=== PATIENT | male | born 1940 | race Caucasian/White ===

== ENCOUNTER 2019-09-04 13:01 | Inpatient (IN) ==
[2019-09-04] MEDS ORDERED: ACETAMINOPHEN 325 MG TABLET PO PRN (15:54)
[2019-09-04] MEDS ORDERED: ONDANSETRON 4 MG/2 ML VIAL IV PRN (15:54)
[2019-09-04 17:09] LABS: Basophils % 0.2 % (0.0-0.8); Eosinophils # 0.1 10*3/uL (0.0-0.87); Hemoglobin 11.9 GM/DL (14.0-18.0); Immature Granulocytes % 0.4 %; Immature Granulocytes Absolute 0.05 #; Lymphocytes # 0.6 10*3/uL (1.4-4.0); Lymphocytes % 5.7 % (21.2-54.2); Mean Corpuscular HGB Conc 36.1 GM/DL (32-36); Mean Platelet Volume 9.3 FL (9.6-12.0); Monocytes % 2.1 % (1.7-12.7); Neutrophils % 90.6 % (38.7-73.9); Platelet Count 193 T/CUMM (130-400); Red Blood Count 3.75 MC/CUMM (3.8-5.5); Red Cell Distribution Width 13.6 % (9.3-17.3); White Blood Count 11.1 T/CUMM (4-12)
[2019-09-04 17:22] LABS: Albumin 2.9 G/DL (3.4-5.0); Bilirubin,Total 1.1 MG/DL (0.2-1.0); Calcium 8.1 MG/DL (8.5-10.1); Osmolality,Calculated 294.1 MOS/KG (273-304); Total Protein 7.3 G/DL (6.4-8.3)
[2019-09-04 18:31] LABS: Band Neutrophils 1 % (0-10); Eosinophils 1 % (0-10); Lymphocytes 5 % (20-55); Platelet Estimate Normal; Segmented Neutrophils 91 % (50-85); Total Cells Counted 100
[2019-09-04] MEDS: SODIUM BICARB INJ 50 MEQ in SODIUM CHLORIDE 0.45% 1,000 ML IV SCH (18:33)
[2019-09-04] MEDS: HEPARIN 5,000 UNIT/1 ML VIAL SUBCUT SCH (18:45)
[2019-09-05] MEDS: HEPARIN 5,000 UNIT/1 ML VIAL SUBCUT SCH ×2 (02:48→10:59)
[2019-09-05] MEDS: SODIUM BICARB INJ 50 MEQ in SODIUM CHLORIDE 0.45% 1,000 ML IV SCH ×2 (02:58→09:43)
[2019-09-05 05:48] LABS: Basophils % 0.1 % (0.0-0.8); Eosinophils # 0.1 10*3/uL (0.0-0.87); Eosinophils % 0.5 % (0.00-10.9); Hematocrit 30.6 VOL% (42.0-52.0); Hemoglobin 10.8 GM/DL (14.0-18.0); Immature Granulocytes % 0.7 %; Immature Granulocytes Absolute 0.07 #; Lymphocytes # 0.7 10*3/uL (1.4-4.0); Lymphocytes % 6.9 % (21.2-54.2); Mean Corpuscular HGB Conc 35.3 GM/DL (32-36); Mean Corpuscular Volume 88.7 FL (87-102); Mean Platelet Volume 9.4 FL (9.6-12.0); Monocytes % 2.1 % (1.7-12.7); Neutrophils % 89.7 % (38.7-73.9); Platelet Count 190 T/CUMM (130-400); Red Blood Count 3.45 MC/CUMM (3.8-5.5); Red Cell Distribution Width 13.7 % (9.3-17.3); White Blood Count 10.7 T/CUMM (4-12)
[2019-09-05 06:06] LABS: Calcium 8.1 MG/DL (8.5-10.1); Osmolality,Calculated 301.5 MOS/KG (273-304)
[2019-09-05] MEDS: PANTOPRAZOLE 40 MG TABLET PO SCH (08:51)
[2019-09-05] MEDS: NYSTATIN 500,000 UNIT/5 ML UDCUP SWISH/SWAL SCH ×4 (09:41→20:14)
[2019-09-05 18:59] LABS: Apearance,Urine CLEAR (Clear); Bilirubin,Urine Negative (Negative); Blood, Urine Large mg/dL (Negative); Glucose,Urine (UA) Negative (Negative); Ketones,Urine Negative (Negative); Mucus,Urine Occasional /LPF (Occasional); Nitrite,Urine Negative (Negative); Protein,Urine Negative; RBC,Urine 282 /HPF (0-4); Urine Color Yellow (Yellow); Urine Specific Gravity 1.011 (1.001-1.035); Urine Urobilinogen < 2.0 EU/DL (0.2-1.0); WBC,Urine <1 /HPF (0-6)
[2019-09-06] MEDS: SODIUM BICARB INJ 50 MEQ in SODIUM CHLORIDE 0.45% 1,000 ML IV SCH ×3 (01:17→10:42)
[2019-09-06] MEDS ORDERED: LORazepam 2 MG/1 ML VIAL IV STA (02:50)
[2019-09-06 06:12] LABS: Calcium 8.6 MG/DL (8.5-10.1); Osmolality,Calculated 293.1 MOS/KG (273-304)
[2019-09-06] MEDS: FLUTICASONE 50 MCG NASAL SPRAY 16 GM BOTTLE BOTH NARES SCH (09:21)
[2019-09-06] MEDS: NYSTATIN 500,000 UNIT/5 ML UDCUP SWISH/SWAL SCH (10:08)
[2019-09-06] MEDS: PANTOPRAZOLE 40 MG TABLET PO SCH ×2 (10:08→11:41)
[2019-09-06] MEDS: FOLIC ACID 1 MG TABLET PO SCH ×2 (10:08→11:41)
[2019-09-06] MEDS: TIMOLOL 0.5% OPH SOLN 5 ML BOTTLE RIGHT EYE SCH (10:10)
[2019-09-06] MEDS ORDERED: FLUCONAZOLE INJ 200 MG in PREMIX 1 EACH IV ONE (10:39)
[2019-09-06] MEDS ORDERED: POTASSIUM CHLORIDE 20 MEQ TABLET PO SCH (11:00)
[2019-09-06] MEDS: OLANZapine 2.5 MG TABLET PO SCH (11:40)
[2019-09-06] MEDS: AMANTADINE 100 MG CAPSULE PO SCH ×2 (11:41→21:16)
[2019-09-06] MEDS: MEMANTINE 10 MG TABLET PO SCH ×2 (11:41→21:16)
[2019-09-06] MEDS: POTASSIUM CHLORIDE INJ 30 MEQ in SODIUM CHLORIDE 0.45% 1,000 ML IV SCH ×2 (13:21→23:38)
[2019-09-06] MEDS ORDERED: LORazepam 2 MG/1 ML VIAL IV ONE ×2 (17:00→23:16)
[2019-09-06] MEDS: MYLANTA/LIDO VISC/NYST 180 ML BOTTLE SWISH/SPIT PRN (17:17)
[2019-09-06] MEDS: OLANZapine 5 MG TABLET PO SCH (21:16)
[2019-09-06] MEDS ORDERED: LORazepam 2 MG/1 ML VIAL ONE (23:31)
[2019-09-07 06:00] LABS: Albumin 2.4 G/DL (3.4-5.0); Calcium 9.1 MG/DL (8.5-10.1)
[2019-09-07] MEDS: MYLANTA/LIDO VISC/NYST 180 ML BOTTLE SWISH/SPIT PRN ×2 (08:14→12:35)
[2019-09-07] MEDS: TIMOLOL 0.5% OPH SOLN 5 ML BOTTLE RIGHT EYE SCH (09:57)
[2019-09-07] MEDS: FLUTICASONE 50 MCG NASAL SPRAY 16 GM BOTTLE BOTH NARES SCH (09:57)
[2019-09-07] MEDS: PANTOPRAZOLE 40 MG TABLET PO SCH (09:58)
[2019-09-07] MEDS: POTASSIUM CHLORIDE INJ 30 MEQ in SODIUM CHLORIDE 0.45% 1,000 ML IV SCH (09:58)
[2019-09-07] MEDS: FOLIC ACID 1 MG TABLET PO SCH (09:58)
[2019-09-07] MEDS: MEMANTINE 10 MG TABLET PO SCH ×2 (09:58→22:13)
[2019-09-07] MEDS: AMANTADINE 100 MG CAPSULE PO SCH ×2 (09:58→22:13)
[2019-09-07] MEDS: OLANZapine 2.5 MG TABLET PO SCH (09:58)
[2019-09-07] MEDS: FLUCONAZOLE INJ 100 MG in IV BAG 1 EACH IV SCH (10:04)
[2019-09-07] MEDS ORDERED: ACYCLOVIR 40 MG/ML 30 ML/BOTTLE PO SCH (15:00)
[2019-09-07] MEDS: ACYCLOVIR INJ 250 MG in SODIUM CHLORIDE 0.9% 100 ML IV SCH ×2 (16:03→22:25)
[2019-09-07] MEDS: OLANZapine 5 MG TABLET PO SCH (22:13)
[2019-09-07] MEDS: DESITIN 4OZ/NYSTATIN 15 GRAM MIXTURE PASTE TOP SCH (22:19)
[2019-09-08] MEDS: ACYCLOVIR INJ 250 MG in SODIUM CHLORIDE 0.9% 100 ML IV SCH ×4 (06:16→22:21)
[2019-09-08] MEDS: POTASSIUM CHLORIDE INJ 30 MEQ in SODIUM CHLORIDE 0.45% 1,000 ML IV SCH ×3 (06:16→14:25)
[2019-09-08 06:33] LABS: Calcium 8.6 MG/DL (8.5-10.1); Osmolality,Calculated 286.3 MOS/KG (273-304)
[2019-09-08 06:35] LABS: Albumin 2.4 G/DL (3.4-5.0); Calcium 8.5 MG/DL (8.5-10.1); Osmolality,Calculated 292.7 MOS/KG (273-304)
[2019-09-08 08:27] LABS: Basophils % 0.4 % (0.0-0.8); Eosinophils # 0.1 10*3/uL (0.0-0.87); Eosinophils % 2.4 % (0.00-10.9); Hematocrit 28.5 VOL% (42.0-52.0); Hemoglobin 9.8 GM/DL (14.0-18.0); Lymphocytes # 0.6 10*3/uL (1.4-4.0); Mean Corpuscular HGB Conc 34.4 GM/DL (32-36); Mean Corpuscular Volume 90.8 FL (87-102); Monocytes % 3.2 % (1.7-12.7); Red Blood Count 3.14 MC/CUMM (3.8-5.5); Red Cell Distribution Width 13.4 % (9.3-17.3)
[2019-09-08 08:28] LABS: Platelet Count 104 T/CUMM (130-400); White Blood Count 2.5 T/CUMM (4-12)
[2019-09-08 09:03] LABS: Band Neutrophils 1 % (0-10); Eosinophils 3 % (0-10); Hypochromasia 1+; Lymphocytes 28 % (20-55); Ovalocytes Slight; Platelet Estimate Decreased; Segmented Neutrophils 67 % (50-85); Total Cells Counted 100
[2019-09-08] MEDS: MYLANTA/LIDO VISC/NYST 180 ML BOTTLE SWISH/SPIT PRN ×2 (09:03→22:20)
[2019-09-08] MEDS: PANTOPRAZOLE 40 MG TABLET PO SCH (09:03)
[2019-09-08] MEDS: FOLIC ACID 1 MG TABLET PO SCH (09:03)
[2019-09-08] MEDS: MEMANTINE 10 MG TABLET PO SCH ×2 (09:03→23:26)
[2019-09-08] MEDS: AMANTADINE 100 MG CAPSULE PO SCH ×2 (09:04→23:26)
[2019-09-08] MEDS: OLANZapine 2.5 MG TABLET PO SCH (09:04)
[2019-09-08] MEDS: FLUTICASONE 50 MCG NASAL SPRAY 16 GM BOTTLE BOTH NARES SCH (09:47)
[2019-09-08] MEDS: TIMOLOL 0.5% OPH SOLN 5 ML BOTTLE RIGHT EYE SCH (09:47)
[2019-09-08] MEDS: DESITIN 4OZ/NYSTATIN 15 GRAM MIXTURE PASTE TOP SCH ×2 (09:47→22:19)
[2019-09-08] MEDS: FLUCONAZOLE INJ 100 MG in IV BAG 1 EACH IV SCH (10:48)
[2019-09-08] MEDS: MYLANTA/LIDO VISC/NYST 180 ML BOTTLE SWISH/SPIT SCH (22:24)
[2019-09-08] MEDS: OLANZapine 5 MG TABLET PO SCH (23:09)
[2019-09-09] MEDS: POTASSIUM CHLORIDE INJ 30 MEQ in SODIUM CHLORIDE 0.45% 1,000 ML IV SCH ×3 (01:29→14:04)
[2019-09-09] MEDS: ACYCLOVIR INJ 250 MG in SODIUM CHLORIDE 0.9% 100 ML IV SCH ×3 (05:46→21:58)
[2019-09-09 06:00] LABS: Eosinophils % 1.2 % (0.00-10.9); Hematocrit 25.9 VOL% (42.0-52.0); Hemoglobin 9.1 GM/DL (14.0-18.0); Immature Granulocytes % 3.1 %; Immature Granulocytes Absolute 0.08 #; Lymphocytes # 0.5 10*3/uL (1.4-4.0); Lymphocytes % 18.8 % (21.2-54.2); Mean Corpuscular HGB Conc 35.1 GM/DL (32-36); Mean Corpuscular Volume 90.2 FL (87-102); Mean Platelet Volume 9.2 FL (9.6-12.0); Neutrophils % 74.9 % (38.7-73.9); Red Blood Count 2.87 MC/CUMM (3.8-5.5); Red Cell Distribution Width 13.1 % (9.3-17.3); White Blood Count 2.6 T/CUMM (4-12)
[2019-09-09 06:06] LABS: Albumin 2.3 G/DL (3.4-5.0); Calcium 8.1 MG/DL (8.5-10.1); Osmolality,Calculated 291.6 MOS/KG (273-304)
[2019-09-09 06:07] LABS: Calcium 8.2 MG/DL (8.5-10.1); Osmolality,Calculated 285.1 MOS/KG (273-304)
[2019-09-09 06:09] LABS: Platelet Count 81 T/CUMM (130-400)
[2019-09-09 06:45] LABS: Band Neutrophils 2 % (0-10); Eosinophils 1 % (0-10); Lymphocytes 16 % (20-55); Segmented Neutrophils 77 % (50-85); Total Cells Counted 100
[2019-09-09 06:46] LABS: Platelet Estimate Decreased
[2019-09-09] MEDS: MEMANTINE 10 MG TABLET PO SCH (08:02)
[2019-09-09] MEDS: PANTOPRAZOLE 40 MG TABLET PO SCH (08:02)
[2019-09-09] MEDS: FOLIC ACID 1 MG TABLET PO SCH (08:02)
[2019-09-09] MEDS: AMANTADINE 100 MG CAPSULE PO SCH (08:03)
[2019-09-09] MEDS: OLANZapine 2.5 MG TABLET PO SCH (08:03)
[2019-09-09] MEDS ORDERED: POTASSIUM CHLORIDE RIDER 10 MEQ in PREMIX 1 EACH IV PRN (08:53)
[2019-09-09] MEDS: TIMOLOL 0.5% OPH SOLN 5 ML BOTTLE RIGHT EYE SCH (10:27)
[2019-09-09] MEDS: DESITIN 4OZ/NYSTATIN 15 GRAM MIXTURE PASTE TOP SCH ×2 (10:27→22:00)
[2019-09-09] MEDS: MYLANTA/LIDO VISC/NYST 180 ML BOTTLE SWISH/SPIT SCH ×3 (10:27→22:00)
[2019-09-09] MEDS: FLUTICASONE 50 MCG NASAL SPRAY 16 GM BOTTLE BOTH NARES SCH (10:27)
[2019-09-09] MEDS: ACETAMINOPHEN 650 MG SUPP RECTAL PRN (10:28)
[2019-09-09 10:51] LABS: Apearance,Urine CLEAR (Clear); Bacteria,Urine Few /HPF (Few); Bilirubin,Urine Negative (Negative); Blood, Urine Moderate mg/dL (Negative); Glucose,Urine (UA) Negative (Negative); Ketones,Urine 20 mg/dL (Negative); Mucus,Urine Occasional /LPF (Occasional); Nitrite,Urine Negative (Negative); Protein,Urine Negative; RBC,Urine 6 /HPF (0-4); Urine Color Yellow (Yellow); Urine Specific Gravity 1.011 (1.001-1.035); Urine Urobilinogen < 2.0 EU/DL (0.2-1.0); WBC,Urine <1 /HPF (0-6)
[2019-09-09] MEDS ORDERED: BISACODYL 10 MG SUPP RECTAL ONE (12:00)
[2019-09-09] MEDS: FLUCONAZOLE INJ 100 MG in IV BAG 1 EACH IV SCH (12:44)
[2019-09-10] MEDS: MEMANTINE 10 MG TABLET PO SCH ×3 (01:02→23:11)
[2019-09-10] MEDS: OLANZapine 5 MG TABLET PO SCH ×2 (01:02→23:12)
[2019-09-10] MEDS: AMANTADINE 100 MG CAPSULE PO SCH ×3 (01:02→23:11)
[2019-09-10] MEDS: POTASSIUM CHLORIDE INJ 30 MEQ in SODIUM CHLORIDE 0.45% 1,000 ML IV SCH ×3 (03:21→16:02)
[2019-09-10] MEDS: ACYCLOVIR INJ 250 MG in SODIUM CHLORIDE 0.9% 100 ML IV SCH ×3 (05:52→22:32)
[2019-09-10 06:35] LABS: Eosinophils % 2.9 % (0.00-10.9); Hematocrit 25.6 VOL% (42.0-52.0); Hemoglobin 8.8 GM/DL (14.0-18.0); Immature Granulocytes % 1.4 %; Immature Granulocytes Absolute 0.02 #; Lymphocytes # 0.4 10*3/uL (1.4-4.0); Lymphocytes % 30.9 % (21.2-54.2); Mean Corpuscular HGB Conc 34.4 GM/DL (32-36); Mean Corpuscular Volume 91.8 FL (87-102); Mean Platelet Volume 9.4 FL (9.6-12.0); Monocytes % 5.8 % (1.7-12.7); Red Blood Count 2.79 MC/CUMM (3.8-5.5); Red Cell Distribution Width 13.3 % (9.3-17.3)
[2019-09-10 06:38] LABS: White Blood Count 1.4 T/CUMM (4-12)
[2019-09-10 06:39] LABS: Platelet Count 58 T/CUMM (130-400)
[2019-09-10 06:44] LABS: Albumin 2.1 G/DL (3.4-5.0); Calcium 7.8 MG/DL (8.5-10.1); Osmolality,Calculated 293.7 MOS/KG (273-304)
[2019-09-10 06:46] LABS: Calcium 8.6 MG/DL (8.5-10.1); Osmolality,Calculated 296.4 MOS/KG (273-304)
[2019-09-10 06:47] LABS: Albumin 2.2 G/DL (3.4-5.0); Bilirubin,Direct 1.1 MG/DL (0.0-0.20); Bilirubin,Total 2.1 MG/DL (0.2-1.0)
[2019-09-10 07:09] LABS: Hypochromasia Slight; Lymphocytes 11 % (20-55); Platelet Estimate Decreased; Polychromasia Few; Segmented Neutrophils 78 % (50-85); Total Cells Counted 100
[2019-09-10] MEDS: TIMOLOL 0.5% OPH SOLN 5 ML BOTTLE RIGHT EYE SCH (09:36)
[2019-09-10] MEDS: PANTOPRAZOLE 40 MG TABLET PO SCH (09:39)
[2019-09-10] MEDS: OLANZapine 2.5 MG TABLET PO SCH (09:39)
[2019-09-10] MEDS: FOLIC ACID 1 MG TABLET PO SCH (09:40)
[2019-09-10] MEDS: FLUTICASONE 50 MCG NASAL SPRAY 16 GM BOTTLE BOTH NARES SCH (09:40)
[2019-09-10] MEDS: MYLANTA/LIDO VISC/NYST 180 ML BOTTLE SWISH/SPIT SCH ×3 (10:07→22:31)
[2019-09-10] MEDS: DESITIN 4OZ/NYSTATIN 15 GRAM MIXTURE PASTE TOP SCH ×2 (10:42→22:31)
[2019-09-10] MEDS: DEXTROSE 5% IV SCH ×2 (12:35→19:48)
[2019-09-10] MEDS: LEUCOVORIN IV SCH ×2 (12:35→19:48)
[2019-09-11] MEDS: LEUCOVORIN IV SCH ×2 (01:22→06:52)
[2019-09-11] MEDS: DEXTROSE 5% IV SCH ×2 (01:22→06:52)
[2019-09-11] MEDS: POTASSIUM CHLORIDE INJ 30 MEQ in SODIUM CHLORIDE 0.45% 1,000 ML IV SCH (05:46)
[2019-09-11] MEDS: ACYCLOVIR INJ 250 MG in SODIUM CHLORIDE 0.9% 100 ML IV SCH (05:46)
[2019-09-11 05:53] LABS: Hematocrit 26.3 VOL% (42.0-52.0); Immature Granulocytes % 2.7 %; Immature Granulocytes Absolute 0.01 #; Lymphocytes # 0.2 10*3/uL (1.4-4.0); Lymphocytes % 45.9 % (21.2-54.2); Mean Corpuscular HGB Conc 34.2 GM/DL (32-36); Mean Corpuscular Volume 91.3 FL (87-102); Mean Platelet Volume 10.3 FL (9.6-12.0); Monocytes % 10.8 % (1.7-12.7); Neutrophils % 40.6 % (38.7-73.9); Platelet Count 41 T/CUMM (130-400); Red Blood Count 2.88 MC/CUMM (3.8-5.5); Red Cell Distribution Width 13.1 % (9.3-17.3)
[2019-09-11 05:56] LABS: White Blood Count 0.4 T/CUMM (4-12)
[2019-09-11 06:17] LABS: Lymphocytes 40 % (20-55); Segmented Neutrophils 53 % (50-85); Total Cells Counted 100
[2019-09-11 06:18] LABS: Hypochromasia Slight; Microcytosis Slight; Ovalocytes Slight; Platelet Estimate Decreased
[2019-09-11 06:19] LABS: Atypical Lymphocytes Few
[2019-09-11 06:34] LABS: Albumin 2.1 G/DL (3.4-5.0); Bilirubin,Direct 1.37 MG/DL (0.0-0.20); Bilirubin,Indirect 1.1 MG/DL (0.0-1.0); Bilirubin,Total 2.5 MG/DL (0.2-1.0); Calcium 8.7 MG/DL (8.5-10.1); Osmolality,Calculated 299.3 MOS/KG (273-304)
[2019-09-11] MEDS: ACETAMINOPHEN 650 MG SUPP RECTAL PRN (06:52)
[2019-09-11] MEDS: DESITIN 4OZ/NYSTATIN 15 GRAM MIXTURE PASTE TOP SCH (09:10)
[2019-09-11 09:50] LABS: ABG Base Excess -8.9 MMOL/L (-2.5-2.5); ABG HCO3 17.2 MMOL/L (20-26); ABG PH 7.464 (7.35-7.45); ABG PO2 81.8 MM HG (80-95); ABG TCO2 12.4 MMOL/L (23-27); Allen Test Positive
[2019-09-11 09:52] LABS: ABG PCO2 18.9 MM HG (35-48)
[2019-09-11] MEDS ORDERED: PIPERACILLIN/TAZOBACTAM 3,375 MG in SODIUM CHLORIDE 0.9% 100 ML IV SCH (10:00)
[2019-09-11] MEDS ORDERED: FILGRASTIM-SNDZ 480 MCG/0.8 ML SYRINGE SUBCUT SCH (10:00)
[2019-09-11] MEDS ORDERED: VANCOMYCIN INJ 750 MG in SODIUM CHLORIDE 0.9% 250 ML IV SCH (10:00)
[2019-09-11] MEDS ORDERED: NOREPINEPHRINE 4 MG/4 ML VIAL IV ONE (10:03)
[2019-09-11] MEDS: FOLIC ACID 1 MG TABLET PO SCH (10:06)
[2019-09-11] MEDS: MEMANTINE 10 MG TABLET PO SCH (10:06)
[2019-09-11] MEDS: MYLANTA/LIDO VISC/NYST 180 ML BOTTLE SWISH/SPIT SCH (10:06)
[2019-09-11] MEDS: PANTOPRAZOLE 40 MG TABLET PO SCH (10:07)
[2019-09-11] MEDS ORDERED: NOREPINEPHRINE 8 MG in SODIUM CHLORIDE 0.9% 242 ML IV PRN (10:07)
[2019-09-11] MEDS: AMANTADINE 100 MG CAPSULE PO SCH (10:07)
[2019-09-11] MEDS: OLANZapine 2.5 MG TABLET PO SCH (10:07)
[2019-09-11] MEDS: FLUTICASONE 50 MCG NASAL SPRAY 16 GM BOTTLE BOTH NARES SCH (10:10)
[2019-09-11] MEDS: TIMOLOL 0.5% OPH SOLN 5 ML BOTTLE RIGHT EYE SCH (10:10)
[2019-09-11 10:16] LABS: Apearance,Urine CLOUDY (Clear); Bacteria,Urine Occasional /HPF (Few); Bilirubin,Urine Negative (Negative); Blood, Urine Moderate mg/dL (Negative); Glucose,Urine (UA) Negative (Negative); Hyaline Casts,Urine 3 /LPF (0-3); Ketones,Urine Negative (Negative); Mucus,Urine Occasional /LPF (Occasional); Nitrite,Urine Negative (Negative); Protein,Urine 30 MG/DL; RBC,Urine 16 /HPF (0-4); Squamous Epithelial Cell,Urine Occasional /HPF (0-10); Urine Color Amber (Yellow); Urine Specific Gravity 1.012 (1.001-1.035); WBC,Urine 5 /HPF (0-6)
[2019-09-11 10:29] VITALS: BP 130/65
[2019-09-11 10:36] LABS: Calcium 8.6 MG/DL (8.5-10.1)
[2019-09-11] MEDS ORDERED: LIDOCAINE 2% 5 ML VIAL ONE (10:36)
[2019-09-11] MEDS ORDERED: ETOMIDATE 40 MG/20 ML VIAL IV ONE (10:37)
[2019-09-11] MEDS ORDERED: SUCCINYLCHOLINE 200 MG/10 ML VIAL ONE (10:37)
[2019-09-11] MEDS ORDERED: DEXTROSE 10% 250 ML BAG IV PRN (11:03)
[2019-09-11] MEDS ORDERED: LORazepam 2 MG/1 ML VIAL IV PRN (11:09)
[2019-09-11] MEDS ORDERED: MORPHINE 4 MG/1 ML VIAL IV PRN (11:09)
[2019-09-11] MEDS ORDERED: VANCOMYCIN INJ 1,000 MG in SODIUM CHLORIDE 0.9% 250 ML IV SCH (14:00)
[2019-09-12] MEDS ORDERED: ACYCLOVIR INJ 250 MG in SODIUM CHLORIDE 0.9% 100 ML IV SCH (06:00)
== END 2019-09-11 11:32 | disposition expired | DRG 682 ==
LOC: SUATTDRO 14:42 → N.5E 14:42 → INTOOBSV 14:42 → SUATTDRO 09-07 13:45 → N.ICU 09-11 09:53
PROVIDERS: ADMIT Internal Medicine; ATTEND Hospitalist